=== PATIENT | male | born 1955 | race Caucasian/White ===

== ENCOUNTER 2017-09-01 14:07 | Inpatient (IN) | payer MEDICARE, BC ==
[~2017-09-01] VITALS: Ht 190.5 cm; Wt 79.4 kg
[2017-09-01 15:37] LABS: HEMATOCRIT 40.1 % (42.0-54.0); HEMOGLOBIN 13.6 g/dL (13.5-17.5); MCH 31.1 pg (26.0-34.0); MCHC 33.9 g/dL (31.0-37.0); MCV 91.6 fL (80.0-100.0); MEAN PLATELET VOLUME 8.9 fL (7.4-10.4); PLATELET COUNT 291 10x3/uL (130-400); RBC 4.38 10x6/uL (4.20-6.10); RDW 13.5 % (11.5-14.5); WBC 29.3 10x3/uL (4.8-10.8)
[2017-09-01 15:45] LABS: ALBUMIN 3.4 g/dL (3.4-5.0); ALKALINE PHOSPHATASE 99 U/L (46-116); ALT (SGPT) 9 U/L (10-68); BILIRUBIN - TOTAL 0.54 mg/dL (0.2-1.3); CALC OSMOLALITY 266 mosm/kg (275-300); CALCIUM 9.7 mg/dL (8.5-10.1); CARBON DIOXIDE 27.5 mmol/L (21.0-32.0); CHLORIDE - SERUM 93 mmol/L (98-107); CREATININE - SERUM 0.9 mg/dL (0.6-1.3); GLUCOSE 105 mg/dL (74-106); PROTEIN - SERUM 7.2 g/dL (6.4-8.2); SODIUM 133 mmol/L (136-145); UREA NITROGEN 14 mg/dL (7-18); eGFR NON AFRICAN AMERICAN > 90 mL/min (90-120)
[2017-09-01 15:58] LABS: CKMB 0.2 U/L (0.0-3.6); PRO BNP 1250 pg/mL (0-125)
[2017-09-01 15:59] LABS: TROPONIN-I < 0.017 ng/mL (0.000-0.060)
[2017-09-01 17:22] LABS: BASOPHILS 1 % (0-2); LYMPHOCYTES 74 % (15-50); MONOCYTES 1 % (2-11); NEUTROPHILS 24 % (40-80)
[2017-09-01 17:23] LABS: PLATELET ESTIMATE NORMAL; TEAR DROP CELLS 1+
[2017-09-01 17:24] LABS: ROULEAUX OCC
[2017-09-01] MEDS ORDERED: ZOFRAN8 MG PO (19:21)
[2017-09-01] MEDS ORDERED: HYDROCODONE-APA1 TAB PO (19:22)
[2017-09-01] MEDS ORDERED: ROBAXIN500 MG PO (19:24)
[2017-09-01] MEDS ORDERED: MELATONIN 3 MG1 TAB PO (20:01)
[2017-09-01 20:54] VITALS: BP 114/78
[2017-09-01 21:48] VITALS: BP 114/78; BMI 21.9
[2017-09-02 00:53] VITALS: BP 135/89
[2017-09-02 04:00] VITALS: BP 119/72
[2017-09-02 08:34] VITALS: BP 162/95
[2017-09-02 12:42] VITALS: BP 156/86
[2017-09-02 12:56] VITALS: BMI 21.8
[2017-09-02 14:11] VITALS: Ht 190.5 cm; Wt 79.4 kg
[2017-09-02 15:15] LABS: APTT 34.8 SECONDS (22.8-39.4); INR 1.14 (0.85-1.17); PROTIME 14.2 SECONDS (11.6-15.0)
[2017-09-02 17:35] LABS: PROTEIN - BODY FLUID 3.9 G/DL
[2017-09-02 20:26] LABS: MACROPHAGES BF 40 %; MESOTHELIALS BF 3 %; NEUT - BF 9 %
[2017-09-03 04:00] VITALS: BP 166/93
[2017-09-03 08:00] LABS: BASOPHILS 0.1 % (0-2); EOSINOPHILS 0.4 % (0-7); HEMATOCRIT 40.4 % (42.0-54.0); HEMOGLOBIN 13.7 g/dL (13.5-17.5); IMMATURE GRANULOCYTES 0.4 % (0-5); LYMPHOCYTES 64.7 % (15-50); MCH 30.7 pg (26.0-34.0); MCHC 33.9 g/dL (31.0-37.0); MCV 90.6 fL (80.0-100.0); MEAN PLATELET VOLUME 8.9 fL (7.4-10.4); MONOCYTES 4.6 % (2-11); NEUTROPHILS 29.8 % (40-80); PLATELET COUNT 235 10x3/uL (130-400); RBC 4.46 10x6/uL (4.20-6.10); RDW 13.3 % (11.5-14.5); WBC 30.1 10x3/uL (4.8-10.8)
[2017-09-03 08:04] VITALS: BP 146/73
[2017-09-03 08:20] LABS: ALBUMIN 2.8 g/dL (3.4-5.0); ALKALINE PHOSPHATASE 97 U/L (46-116); ALT (SGPT) 10 U/L (10-68); BILIRUBIN - TOTAL 0.75 mg/dL (0.2-1.3); CALC OSMOLALITY 255 mosm/kg (275-300); CALCIUM 9.4 mg/dL (8.5-10.1); CHLORIDE - SERUM 93 mmol/L (98-107); CREATININE - SERUM 0.7 mg/dL (0.6-1.3); GLUCOSE 115 mg/dL (74-106); MAGNESIUM - SERUM 2.1 mg/dL (1.8-2.4); PHOSPHOROUS 3.5 mg/dL (2.5-4.9); POTASSIUM - SERUM 3.9 mmol/L (3.5-5.1); PROTEIN - SERUM 6.7 g/dL (6.4-8.2); SODIUM 127 mmol/L (136-145); UREA NITROGEN 13 mg/dL (7-18); eGFR NON AFRICAN AMERICAN > 90 mL/min (90-120)
[2017-09-03 12:23] VITALS: BP 132/73
[2017-09-03 15:48] VITALS: BP 150/89
[2017-09-03 20:00] VITALS: BP 141/84
[2017-09-03 23:53] VITALS: BP 148/89
[2017-09-04 04:00] VITALS: BP 146/88
[2017-09-04 04:54] LABS: BASOPHILS 0.1 % (0-2); EOSINOPHILS 0.4 % (0-7); HEMATOCRIT 32.3 % (42.0-54.0); HEMOGLOBIN 10.8 g/dL (13.5-17.5); IMMATURE GRANULOCYTES 0.4 % (0-5); LYMPHOCYTES 64.6 % (15-50); MCH 29.8 pg (26.0-34.0); MCHC 33.4 g/dL (31.0-37.0); MCV 89.2 fL (80.0-100.0); MEAN PLATELET VOLUME 8.7 fL (7.4-10.4); MONOCYTES 5.4 % (2-11); NEUTROPHILS 29.1 % (40-80); PLATELET COUNT 248 10x3/uL (130-400); RBC 3.62 10x6/uL (4.20-6.10); RDW 13.4 % (11.5-14.5); WBC 25.9 10x3/uL (4.8-10.8)
[2017-09-04 05:10] LABS: ALBUMIN 2.3 g/dL (3.4-5.0); ALKALINE PHOSPHATASE 87 U/L (46-116); ALT (SGPT) 10 U/L (10-68); CALC OSMOLALITY 256 mosm/kg (275-300); CALCIUM 8.6 mg/dL (8.5-10.1); CARBON DIOXIDE 23.1 mmol/L (21.0-32.0); CHLORIDE - SERUM 96 mmol/L (98-107); CREATININE - SERUM 0.6 mg/dL (0.6-1.3); GLUCOSE 110 mg/dL (74-106); MAGNESIUM - SERUM 1.8 mg/dL (1.8-2.4); PHOSPHOROUS 3.2 mg/dL (2.5-4.9); POTASSIUM - SERUM 3.9 mmol/L (3.5-5.1); PROTEIN - SERUM 5.8 g/dL (6.4-8.2); SODIUM 128 mmol/L (136-145); UREA NITROGEN 11 mg/dL (7-18); eGFR NON AFRICAN AMERICAN > 90 mL/min (90-120)
[2017-09-04 08:18] VITALS: BP 152/87
[2017-09-04 12:27] VITALS: BP 166/98
[2017-09-04 13:08] LABS: ACID FAST SMEAR Negative (()); AFB SPECIMEN PROCESSING Not Indicated (())
[2017-09-04 16:30] VITALS: BP 155/86
[2017-09-04 20:00] VITALS: BP 159/92
[2017-09-05 04:00] VITALS: BP 159/87
[2017-09-05 05:16] LABS: BASOPHILS 0.1 % (0-2); EOSINOPHILS 0.4 % (0-7); HEMATOCRIT 32.9 % (42.0-54.0); IMMATURE GRANULOCYTES 0.4 % (0-5); MCH 30.1 pg (26.0-34.0); MCHC 33.4 g/dL (31.0-37.0); MCV 89.9 fL (80.0-100.0); MEAN PLATELET VOLUME 9.1 fL (7.4-10.4); MONOCYTES 5.7 % (2-11); NEUTROPHILS 30.4 % (40-80); PLATELET COUNT 286 10x3/uL (130-400); RBC 3.66 10x6/uL (4.20-6.10); RDW 13.6 % (11.5-14.5); WBC 32.4 10x3/uL (4.8-10.8)
[2017-09-05 05:18] LABS: ALBUMIN 2.3 g/dL (3.4-5.0); ALKALINE PHOSPHATASE 80 U/L (46-116); ALT (SGPT) 9 U/L (10-68); CALC OSMOLALITY 260 mosm/kg (275-300); CALCIUM 8.7 mg/dL (8.5-10.1); CARBON DIOXIDE 20.4 mmol/L (21.0-32.0); CHLORIDE - SERUM 97 mmol/L (98-107); CREATININE - SERUM 0.7 mg/dL (0.6-1.3); GLUCOSE 116 mg/dL (74-106); POTASSIUM - SERUM 3.8 mmol/L (3.5-5.1); PROTEIN - SERUM 5.9 g/dL (6.4-8.2); SODIUM 129 mmol/L (136-145); eGFR NON AFRICAN AMERICAN > 90 mL/min (90-120)
[2017-09-05 05:30] LABS: UREA NITROGEN 14 mg/dL (7-18)
[2017-09-05 08:33] VITALS: BP 172/92
[2017-09-05 12:08] VITALS: BP 110/83
[2017-09-05 15:40] VITALS: BP 168/93
[2017-09-05 20:00] VITALS: BP 140/86
[2017-09-06 04:00] VITALS: BP 154/92
[2017-09-06 05:18] LABS: BASOPHILS 0.1 % (0-2); EOSINOPHILS 0.8 % (0-7); HEMATOCRIT 36.3 % (42.0-54.0); IMMATURE GRANULOCYTES 0.4 % (0-5); LYMPHOCYTES 67.7 % (15-50); MCH 30.2 pg (26.0-34.0); MCHC 33.1 g/dL (31.0-37.0); MCV 91.4 fL (80.0-100.0); MEAN PLATELET VOLUME 9.3 fL (7.4-10.4); PLATELET COUNT 314 10x3/uL (130-400); RBC 3.97 10x6/uL (4.20-6.10); RDW 13.5 % (11.5-14.5); WBC 29.3 10x3/uL (4.8-10.8)
[2017-09-06 05:35] LABS: CALC OSMOLALITY 252 mosm/kg (275-300); CALCIUM 9.1 mg/dL (8.5-10.1); CARBON DIOXIDE 23.7 mmol/L (21.0-32.0); CHLORIDE - SERUM 94 mmol/L (98-107); CREATININE - SERUM 0.7 mg/dL (0.6-1.3); GLUCOSE 86 mg/dL (74-106); POTASSIUM - SERUM 3.8 mmol/L (3.5-5.1); SODIUM 127 mmol/L (136-145); UREA NITROGEN 11 mg/dL (7-18); eGFR NON AFRICAN AMERICAN > 90 mL/min (90-120)
[2017-09-06 09:29] VITALS: BP 156/89
[2017-09-06 13:17] LABS: FUNGUS STAIN Final report (())
[2017-09-12 09:09] LABS: FUNGUS MYCOLOGY CULTURE Preliminary report (())
== END 2017-09-06 13:04 | disposition home health service (06) | DRG 853 ==
LOC: D.ER 14:07 → D.MS 17:14
PROVIDERS: Family Medicine; Internal Medicine Pulmonary Disease; Nurse Practitioner Family; Radiology Diagnostic Radiology
PROC: 0PB13ZX Excision of 1 to 2 Ribs, Percutaneous Approach, Diagnostic (ICD-10-PCS; principal; 2017-09-02 15:50)
PROC: 0W993ZZ Drainage of Right Pleural Cavity, Percutaneous Approach (ICD-10-PCS; 2017-09-02 15:50)
DX: A41.9 Sepsis, unspecified organism (principal); J18.9 Pneumonia, unspecified organism; C34.90 Malignant neoplasm of unspecified part of unspecified bronchus or lung; C79.31 Secondary malignant neoplasm of brain; C79.51 Secondary malignant neoplasm of bone; C79.49 Secondary malignant neoplasm of other parts of nervous system; J98.11 Atelectasis; E46 Unspecified protein-calorie malnutrition; E87.1 Hypo-osmolality and hyponatremia; J91.0 Malignant pleural effusion; L98.8 Other specified disorders of the skin and subcutaneous tissue; I10 Essential (primary) hypertension; Z68.21 Body mass index [BMI] 21.0-21.9, adult